=== PATIENT | male | born 1980 | race African-American/Black ===

== ENCOUNTER 2021-09-14 23:10 | Emergency (ER) | payer OTHER ==
[2021-09-14] MEDS ORDERED: Boostrix 0.5 ML (Tdap) VIAL ONE (23:45)
[2021-09-14] MEDS ORDERED: Bacitracin 1 PK ONE (23:45)
[2021-09-14] MEDS ORDERED: Lidocaine 1% 20 ML MDV ONE (23:45)
[2021-09-15] MEDS ORDERED: Acetaminophen 325 MG TAB ONE (00:29)
== END 2021-09-15 00:34 | disposition home or self-care (01) ==
LOC: NAV ERS 23:10
DX: S01.111A Laceration without foreign body of right eyelid and periocular area, initial encounter (principal); I10 Essential (primary) hypertension; J45.909 Unspecified asthma, uncomplicated; Z23 Encounter for immunization; Z79.51 Long term (current) use of inhaled steroids; Z79.899 Other long term (current) drug therapy; W51.XXXA Accidental striking against or bumped into by another person, initial encounter; Y93.67 Activity, basketball; Y92.149 Unspecified place in prison as the place of occurrence of the external cause
CPT/HCPCS: 12011; 90471; 90715